=== PATIENT | male | born 1935 | race Caucasian/White ===

== ENCOUNTER 2021-08-30 20:12 | Inpatient (IN) | payer OTHER ==
[~2021-08-30] VITALS: Ht 162.6 cm; Wt 84.8 kg
[2021-08-30 22:55] LABS: BASOPHIL 0 % (0-2); EOSINOPHIL 0 % (0-7); HCT 39.1 % (42.0-52.0); HGB 12.9 g/dl (13.2-18.0); LYMPHOCYTE 5.8 % (15-48); MCH 26.4 pg (25.0-31.0); MCV 80.1 fL (78.0-100.0); MONOCYTE 3.4 % (0-12); MPV 9.5 fL (6.0-9.5); NEUTROPHIL 90.5 % (41-80); NRBC 0; PLT 224 K/uL (150-400); RBC 4.88 M/uL (4.70-6.00); RDW 13.8 % (11.5-14.0); WBC 7.6 K/uL (4.0-10.5)
[2021-08-30 23:08] LABS: ALBUMIN 3.8 g/dL (3.4-5.0); BILIRUBIN - TOTAL 0.8 mg/dL (0.2-1.0); BUN/CREAT RATIO (CALC) 17.5 RATIO; CREATININE 2.75 mg/dL (0.67-1.17); GLOBULIN (CALCULATION) 4.7 g/dL; POTASSIUM 4.5 mmol/L (3.5-5.1); TOTAL PROTEIN 8.5 g/dL (6.4-8.2)
[2021-08-30 23:12] LABS: LACTIC ACID 1.7 mmol/L (0.4-1.9)
[2021-08-31 00:08] LABS: BILIRUBIN 1+ mg/dL (NEGATIVE); BLOOD 3+ Ery/uL (NEGATIVE); CLARITY CLEAR (CLEAR); COLOR YELLOW (YELLOW); GLUCOSE (U) NORMAL (NORMAL); LEUKOCYTES NEGATIVE Leu/uL (NEGATIVE); NITRITE NEGATIVE (NEGATIVE); PROTEIN 2+ mg/dL (NEGATIVE); SPECIFIC GRAVITY >=1.030 (1.001-1.030); UROBILINOGEN 0.2 mg/dL (0.2-1.0); pH 5.5 (5.0-9.0)
[2021-08-31 00:15] LABS: AMORPHOUS URATES CRYSTALS MODERATE; BACTERIA 2+; GRANULAR CASTS TRACE; MUCOUS TRACE; URINARY RBC 20-50
[2021-08-31 02:18] LABS: INFLUENZA A NAA NEGATIVE (NEGATIVE)
[2021-08-31 02:34] LABS: CORONAVIRUS 2019 SARS-COV-2 POSITIVE (NEGATIVE)
[2021-08-31 06:07] LABS: HCT 36.2 % (42.0-52.0); HGB 11.9 g/dl (13.2-18.0); MCH 26.2 pg (25.0-31.0); MCHC 32.9 g/dL (32.0-36.0); MCV 79.6 fL (78.0-100.0); MPV 9.4 fL (6.0-9.5); RBC 4.55 M/uL (4.70-6.00); RDW 13.7 % (11.5-14.0); WBC 6.9 K/uL (4.0-10.5)
[2021-08-31] MEDS ORDERED: LEVOTHYROXINE75 MC2 PO (06:23)
[2021-08-31] MEDS ORDERED: LASIX40 MG PO (06:24)
[2021-08-31] MEDS ORDERED: PRAVACHOL20 MG PO (06:24)
[2021-08-31] MEDS ORDERED: NORVASC5 MG PO (06:25)
[2021-08-31] MEDS ORDERED: ST. JOSEPH ASPI81 M1 PO (06:27)
[2021-08-31 06:56] LABS: ALBUMIN 3.4 g/dL (3.4-5.0); BILIRUBIN - TOTAL 0.6 mg/dL (0.2-1.0); BUN/CREAT RATIO (CALC) 19.7 RATIO; C-REACTIVE PROTEIN 11.2 mg/dL (<=0.90); CREATININE 2.59 mg/dL (0.67-1.17); GLOBULIN (CALCULATION) 4.3 g/dL; TOTAL PROTEIN 7.7 g/dL (6.4-8.2)
[2021-09-01 03:12] LABS: BASOPHIL 0.2 % (0-2); EOSINOPHIL 0 % (0-7); HCT 36.9 % (42.0-52.0); HGB 12.8 g/dl (13.2-18.0); LYMPHOCYTE 10.6 % (15-48); MCH 27.6 pg (25.0-31.0); MCHC 34.7 g/dL (32.0-36.0); MCV 79.5 fL (78.0-100.0); MONOCYTE 5.1 % (0-12); MPV 9.5 fL (6.0-9.5); NEUTROPHIL 83.1 % (41-80); NRBC 0; PLT 281 K/uL (150-400); RBC 4.64 M/uL (4.70-6.00); RDW 12.5 % (11.5-14.0)
[2021-09-01 03:19] LABS: WBC 20.3 K/uL (4.0-10.5)
[2021-09-01 04:45] LABS: CREATININE 2.41 mg/dL (0.67-1.17); POTASSIUM 3.6 mmol/L (3.5-5.1)
--- NOTE | 2021-09-01 14:21 | NUR ---
09/01/21 Per telephone conversation with Ms. Obrien, Mr. Obrien lives at home with his spouse. He has a rw and wc. Patient has a dx of Alzheimer's and has memory deficits. Mr. Obrien was discharged fron [facility] on 08/30. He was unable to stand up after discharge. He was previously able to go to the bathroom independently. Ms. Obrien was informed that transfers currently require the assist of 2. She is in hopes that he will built up some strength while hospitalized. She is opposed to [facility] placement and sitters are not affordable.
--- NOTE | 2021-09-01 17:32 | NUR ---
CONTACTED PCP IN CHART, PT IS NOT SEEN THERE. CONTACTED SON AND PT NEW PCP IS [facility], CONTACT NUMBER [phone], I CALLED 2 AND NO ONE AT THE DESK TO ANSWER. WILL PASS ON IN REPORT TO TRY CALEB KEE.
[2021-09-02 06:44] LABS: BASOPHIL 0 % (0-2); EOSINOPHIL 0 % (0-7); HCT 33.7 % (42.0-52.0); HGB 11.2 g/dl (13.2-18.0); LYMPHOCYTE 7.9 % (15-48); MCH 26.3 pg (25.0-31.0); MCHC 33.2 g/dL (32.0-36.0); MCV 79.1 fL (78.0-100.0); MONOCYTE 5.5 % (0-12); MPV 9.5 fL (6.0-9.5); NEUTROPHIL 85.9 % (41-80); NRBC 0; PLT 199 K/uL (150-400); RBC 4.26 M/uL (4.70-6.00); RDW 13.5 % (11.5-14.0)
[2021-09-02 06:53] LABS: CREATININE 2.49 mg/dL (0.67-1.17); MAGNESIUM 2.3 mg/dL (1.8-2.4); POTASSIUM 3.8 mmol/L (3.5-5.1)
--- NOTE | 2021-09-02 15:20 | NUR ---
09/02/21 Kira Murcia was informed of the planned discharge for tomorrow. She wishes to take him home inspite of his level of care. She states that the children will assist. Ms. Murcia requested HH services and did not have a preference of agencies. A referral was made to [facility].
--- NOTE | 2021-09-03 10:39 | NUR ---
09/03/21 Per conference call with Chrissrajsaritha, Darrion Obrien, Son ([phone], and Jaleesa Caballero, stepdaughter, family would like SNF placement. Choices are [place], [facility], [place], or to available facilities.
[2021-09-04 06:51] LABS: HCT 32.8 % (42.0-52.0); HGB 11.1 g/dl (13.2-18.0); MCH 26.2 pg (25.0-31.0); MCHC 33.8 g/dL (32.0-36.0); MCV 77.5 fL (78.0-100.0); MPV 9.6 fL (6.0-9.5); RBC 4.23 M/uL (4.70-6.00); RDW 13.8 % (11.5-14.0); WBC 7.5 K/uL (4.0-10.5)
[2021-09-04 07:20] LABS: BUN/CREAT RATIO (CALC) 32.3 RATIO; CREATININE 2.23 mg/dL (0.67-1.17); POTASSIUM 3.5 mmol/L (3.5-5.1)
--- NOTE | 2021-09-07 10:57 | NUR ---
09/07/21 Gen Palomino was informed og patient's on 09/06/21.
== END 2021-09-06 20:45 | disposition expired | DRG 871 ==
LOC: FER 20:12 → FICU 08-31 02:38 → FOFB 08-31 02:38 → FICU 08-31 05:30 → FMS 09-01 11:59 → FTCU 09-06 05:14
PROVIDERS: Emergency Medicine; Emergency Medicine Emergency Medical Services; Internal Medicine; Nurse Practitioner; ADMIT Family Medicine
PROC: 8E0ZXY6 Isolation (ICD-10-PCS; 2021-08-31)
PROC: 5A09357 Assistance with Respiratory Ventilation, Less than 24 Consecutive Hours, Continuous Positive Airway Pressure (ICD-10-PCS; principal; 2021-09-06)
DX: A41.9 Sepsis, unspecified organism (principal); U07.1 COVID-19; J12.82 Pneumonia due to coronavirus disease 2019; G93.41 Metabolic encephalopathy; J18.9 Pneumonia, unspecified organism; J96.01 Acute respiratory failure with hypoxia; N18.4 Chronic kidney disease, stage 4 (severe); N30.01 Acute cystitis with hematuria; N17.9 Acute kidney failure, unspecified; I48.20 Chronic atrial fibrillation, unspecified; R65.20 Severe sepsis without septic shock; Z66 Do not resuscitate; Z51.5 Encounter for palliative care; S41.112A Laceration without foreign body of left upper arm, initial encounter; S41.111A Laceration without foreign body of right upper arm, initial encounter; W06.XXXA Fall from bed, initial encounter; I12.9 Hypertensive chronic kidney disease with stage 1 through stage 4 chronic kidney disease, or unspecified chronic kidney disease; E11.22 Type 2 diabetes mellitus with diabetic chronic kidney disease; R62.7 Adult failure to thrive; Z68.32 Body mass index [BMI] 32.0-32.9, adult; Z79.899 Other long term (current) drug therapy; Z79.82 Long term (current) use of aspirin
CPT/HCPCS: 36415; 36600; 70450; 71045; 72170; 80048; 80053; 81001; 82728; 82803; 82962; 83605; 83615; 83735; 84145; 84484; 85025; 86140; 87040; 87088; 93005; 94010; 94640; 94660; 94760; 94762; 97162; 97166; 97530-GP; 97535; J0696; J1100; J1650; J1940; J2060; J2270; J3360; J7030; U0002